=== PATIENT | male | born 1995 | race Caucasian/White ===

== ENCOUNTER 2016-06-09 00:22 | Emergency (ER) | payer BC, OTHER ==
[~2016-06-09] VITALS: Ht 172.7 cm; Wt 81.6 kg
[2016-06-09 00:23] VITALS: BP 113/74; PULSE 90; TEMP 37.1; O2SAT 95; Ht 172.7 cm; Wt 81.6 kg
[2016-06-09] MEDS ORDERED: CLR10 PO (00:32)
[2016-06-09] MEDS ORDERED: XYLOCAINE 1%/SOD BICARB 20 ML VIAL INFIL ONE (00:45)
--- NOTE | 2016-06-09 06:24 | EMERGENCY ROOM VISIT NOTE ---
ED Visit Note First contact with patient: 00:40 CHIEF COMPLAINT: Finger laceration HISTORY OF PRESENT ILLNESS: This 20-year-old male patient presents to the emergency department ambulatory after cutting the left thumb on a broken glass bottle one hour ago. The patient does admit to drinking alcohol tonight. The bleeding has stopped. Denies weakness or numbness of the hand or fingers. The patient rates the pain as stinging and 7/10. The patient denies any other injuries. The patient's Tetanus shot is up to date. REVIEW OF SYSTEMS: A 6 system review of systems was completed with positives and pertinent negatives listed in the HPI. ALLERGIES: No known drug allergies MEDICATIONS: Claritin PMH: No significant past medical history. SOCIAL HISTORY: The patient is a [employer] student and lives with roommates. Nonsmoker, admits to occasional alcohol use. PHYSICAL EXAM: Vital Signs: Reviewed Nurse's notes, vital signs stable. GENERAL : This is a 20-year-old male, in no acute distress, well-developed, well- nourished. SKIN: There is a 3 cm long laceration on the medial aspect of the left thumb. The edges gape apart with traction. There is no foreign material in the wound and it looks clean. There is no active bleeding. No deep structures such as tendons, bones, or significant blood vessels are seen in the base of the wound. Full range of motion and full strength of the thumb. Capillary refill less than 2 seconds. Normal sensation to light and sharp touch. EMERGENCY DEPARTMENT COURSE: I examined the patient. Verbal consent was obtained to perform the procedure. Using sterile technique the wound was cleansed with Betadine. The area was sterilely draped. 3 ml of 1% buffered lidocaine was used to anesthetize the laceration on the hand. Once the patient was anesthetized, the wound was copiously irrigated under pressure with sterile saline. The wound was explored and was as described above. The laceration was repaired using 7 simple interrupted 5-0 nylon sutures with the wound edges being well approximated. The patient tolerated the procedure well. Hemostasis was achieved. The area was cleaned with sterile saline and dressed with bacitracin ointment and bandage. The patient was discharged home in good condition. DIAGNOSIS: Finger laceration Current/Historical Medications Scheduled Loratadine (Claritin), 10 MG PO DAILY Allergies Coded Allergies: No Known Allergies (Unverified , 06/09/16) Vital Signs Date Time Temp Pulse Resp B/P Pulse Ox O2 Delivery O2 Flow Rate FiO2 06/09/16 00:23 37.1 90 16 113/74 95 Room Air Medications Administered Medications (Trade) Dose Ordered Sig/Nalini Route Start Time Stop Time Status Last Admin Dose Admin Lidocaine HCl (Buffered Lidocaine 1% Inj) 20 ml ONE ONCE INFIL 06/09/16 00:45 06/09/16 00:46 DC 06/09/16 00:46 20 ML Departure Information Impression Primary Impression: Finger laceration Dispostion Home / Self-Care Condition FAIR Referrals No Doctor, Assigned (PCP) Forms HOME CARE DOCUMENTATION FORM, IMPORTANT VISIT INFORMATION Patient Instructions [facility] Problem Qualifiers Primary Impression: Finger laceration Encounter type: initial encounter Qualified Codes: S61.219A - Laceration without foreign body of unspecified finger without damage to nail, initial encounter
== END 2016-06-09 02:30 | disposition home or self-care (01) ==
LOC: C.EDB 00:23 → C.EDA 02:30
DX: S61.012A Laceration without foreign body of left thumb without damage to nail, initial encounter (principal); W25.XXXA Contact with sharp glass, initial encounter; Y92.89 Other specified places as the place of occurrence of the external cause